=== PATIENT | female | born 1960 | race Caucasian/White ===

== ENCOUNTER 2023-02-21 10:17 | Outpatient (CLI) | payer OTHER | END 2023-02-21 10:18 | disposition home or self-care (01) | LOC: CSHCP 10:17 | PROVIDERS: ATTEND Internal Medicine | DX: R06.09 Other forms of dyspnea (principal); R94.2 Abnormal results of pulmonary function studies | CPT/HCPCS: 94010; 94618; 94726; 94729 ==

== ENCOUNTER 2024-04-17 09:15 | Outpatient (CLI) | payer OTHER | END 2024-04-17 09:16 | disposition home or self-care (01) | LOC: CSHSLEEP 09:15 | PROVIDERS: ATTEND Family Medicine | DX: R53.83 Other fatigue (principal); E66.9 Obesity, unspecified; Z68.42 Body mass index [BMI] 45.0-49.9, adult; R06.83 Snoring; G47.00 Insomnia, unspecified; I10 Essential (primary) hypertension; G47.33 Obstructive sleep apnea (adult) (pediatric) | CPT/HCPCS: 95800 ==